=== PATIENT | female | born 1955 | race Caucasian/White ===

== ENCOUNTER 2018-01-29 09:31 | Inpatient (IN) | payer MEDICARE, OTHER, SELFPAY ==
[2018-01-29] VITALS (18 sets, daily range): BP systolic 106–175; BP diastolic 59–96; PULSE 56–82; RESP 12–18; TEMP 36.3–37.1; O2SAT 94–100; BMI 20.5
--- NOTE | 2018-01-29 | PATH_ITS ---
[facility] Accession Number: [id number] . 01 Material submitted: . RIGHT PORTION OF THE COLON . 02 Diagnosis: Portion of Right Colon, Partial Colectomy: Segment of colon with focal mucosal ischemic changes, consistent with clinical history of volvulus. Segment of small bowel with no diagnostic abnormality. Appendix with endoappendicitis; negative for neoplasm. Negative for dysplasia or malignancy. MRV/02/02/2018 . 02 Electronically signed: . Humberto Fofana MD, PhD, Pathologist NPI- [id number] . 01 Gross description: . Received in formalin, labeled with the patient's name and portion of the right colon is a 23 cm in length portion of colon which is stapled at both ends and has a diameter ranging from 4 to 6 cm. An 8 cm in length by 0.7 cm in diameter appendix is present. The serosa is smooth and without gross lesions. Opening the specimen reveals soft fecal material and partially digested food particles. The lumen appears dilated and the wall thickness ranges from 0.1 to 0.2 cm. The mucosa is naranjo-brown and partially folded. No masses or lesions are identified. The appendix is serially sectioned and no fecaliths are identified. Also received is a separate portion of what appears to be small bowel which was previously opened and measures 4.5 cm in length by 1.9 cm in diameter with multiple staple lines. The specimen is opened to reveal well folded, unremarkable mucosa. Pension Consultant sections are submitted as follows: A1 - proximal resection margin; A2 - distal resection margin; A3-A4 - novelties sales representative full-thickness mucosa; A5 - ileocecal valve; A6 - appendix tip and cross-sections; A7 - separate portion of mucosa. (LATASHA:[id number]) /MRV . 02 Pathologist provided ICD-10: K56.2 . 02 CPT . 346608 Performed at: 01 [facility] [address] [place] [address], [place], [place] [id number] MD Morales Cross MD Phone: [phone] Performed at: 02 [facility] [address] [place], [place] [id number] MD Steven Krueger MD Phone: [phone]
--- NOTE | 2018-01-29 10:02 | ED.ABDPAIN ---
HPI - Abdominal Pain General Chief Complaint: Abdominal Pain Stated Complaint: lower right abdominal pain Time Seen by Provider: 01/29/18 09:39 Source: patient Mode of arrival: ambulatory Limitations: no limitations History of Present Illness HPI narrative: This is a 62-year-old female comes in with complaint of right-sided abdominal pain particularly in the lower quadrant. Patient states she has had similar pain in the past when she had which she describes as a torsion of her bowel. This was treated with oral an enema contrast which resolved her issues at that time. Patient states that pain started over night. It sort of feels like a contraction and comes and goes. She has felt nauseated but no vomiting. She has been having bowel movement regularly and had 1 yesterday morning. She typically has 1 bowel movement each morning. She has had no urinary symptoms. Patient denies any other fevers. MD complaint: abdominal pain Onset (ago): hour(s) Pain Consistency: intermittent Location: RLQ Severity: moderate Quality: cramping ( Feels like contractions.) Migration to: no migration Context: history of similar episodes Related Data Home Medications Medication Instructions Recorded Confirmed cholecalciferol (vitamin D3) 4,000 mg OR Q DAY #0 11/04/16 01/29/18 [Vitamin D3] lisinopril 10 mg OR Q DAY #0 11/04/16 01/29/18 Allergies Allergy/AdvReac Type Severity Reaction Status Date / Time No Known Drug Allergies Allergy Verified 01/29/18 09:41 Review of Systems Review of Systems All systems reviewed & are unremarkable except as noted in HPI and below Constitutional Reports as per HPI, Denies anorexia, Denies body ache(s), Denies chills, Reports difficulty sleeping and Denies fever(s) Cardiovascular Denies chest pain, Denies irregular heart rhythm, Denies lightheadedness, Denies palpitations, Denies dyspnea, Denies dyspnea on exertion and Denies orthopnea Respiratory Denies cough, Denies dyspnea, Denies dyspnea on exertion and Denies wheezing Gastrointestinal Gastrointestinal: Reports abdominal pain, Denies constipation, Denies diarrhea, Reports nausea, Denies vomiting and Denies hematemesis Genitourinary Denies hematuria, Denies urinary frequency and Denies flank pain Musculoskeletal Comments: No back pain Endocrine Denies palpitations Allergic/Immunologic Denies wheezing [facility] Medical History Hypertension (Acute) Social History household members: spouse Smoking Status: Never smoker Exam Initial Vital Signs Initial Vital Signs: Vital Signs Temperature 98.8 F 01/29/18 09:38 Pulse Rate 70 01/29/18 09:38 Respiratory Rate 14 01/29/18 09:38 Blood Pressure 175/96 H 01/29/18 09:38 Pulse Oximetry 100 01/29/18 09:38 Chest Chest: normal inspection of the chest Resp Effort & Inspection: normal respiratory effort, able to speak in complete sentences, no respiratory distress and no use of accessory muscles Auscultation: clear to auscultation bilaterally, no rales, no rhonchi and no wheezes Cardio Rate: regular rate Rhythm: regular rhythm Heart Sounds: no click, no gallops, no murmurs and no rubs Pulses: normal peripheral pulses GI Inspection: normal to inspection, non-distended and no visible pulsation Palpation: soft, no hepatosplenomegaly, No firm, guarding, No hepatomegaly, No hernia, No mass, No pulsatile mass, No rigid and tender (rlq) Auscultation: normal bowel sounds Other: no bruit General: No CVA tenderness Course Orders Ordered: ED Orders 01/29/18 09:45 Complete Blood Count AUTO DIFF Stat Comprehensive Metabolic Panel Stat Lipase Stat Partial Thromboplastin Time Stat Prothrombin Time INR Stat 01/29/18 10:03 CT abdomen pelvis w con Stat 01/29/18 16:59 Consult to Discharge Planning Routine Education, smoking cessation ONGOING Diphenhydramine HCl (Benadryl) 25 mg IV Q6HR PRN PRN Reason: Itching Enoxaparin Sodium (Lovenox) 40 mg SUBCUT DAILY FERNANDA Hydromorphone HCl (Dilaudid) 0.5 mg IV Q1HR PRN PRN Reason: Pain, Moderate (4-6) Dextrose/Sodium Chloride (Dextrose 5%-0.45% Ns) 1,000 mls @ 100 mls/hr IV CONT FERNANDA Last Admin: 01/29/18 18:24 Dose: 100 mls/hr Ketorolac Tromethamine (Toradol) 15 mg IV Q6H PRN PRN Reason: Pain, Moderate (4-6) Stop: 02/03/18 16:21 Naloxone HCl (Narcan) 0.2 mg IV Q2MIN PRN PRN Reason: Opiate Reversal Ondansetron HCl (Zofran) 4 mg IV Q4HR PRN PRN Reason: Nausea And Vomiting Discontinued Medications Bupivacaine HCl (Sensorcaine 0.5% (Pf)) 30 ml INJ INTRA-OP ONE Stop: 01/29/18 15:53 Last Admin: 01/29/18 15:53 Dose: 20 ml Fentanyl (Sublimaze) 25 mcg IV Q5MIN PRN PRN Reason: Pain, Mild (1-3) Fentanyl (Sublimaze) 50 mcg IV Q5MIN PRN PRN Reason: Pain, Moderate (4-6) Hydromorphone HCl (Dilaudid) 0.5 mg IV Q5MIN PRN PRN Reason: Pain, Severe (7-10) Hydroxyzine HCl (Vistaril) 25 mg IM NOW PRN PRN Reason: Pain, Mild (1-3) Sodium Chloride (Normal Saline 0.9%) 1,000 mls @ 150 mls/hr IV CONT ON LICENSE OF [facility] Last Infusion: 01/29/18 15:12 Dose: 0 mls/hr Infusion: 01/29/18 14:55 Dose: 0 mls/hr Admin: 01/29/18 10:05 Dose: 150 mls/hr Lactated Ringer's (Lactated Ringers) 1,000 mls @ 42 mls/hr IV CONT ON LICENSE OF [facility] Last Infusion: 01/29/18 16:46 Dose: 0 mls/hr Admin: 01/29/18 14:55 Dose: 42 mls/hr Cefotetan Disodium/Dextrose (Cefotan) 2 gm in 50 mls @ 100 mls/hr IV NOW ONE Stop: 01/29/18 16:24 Last Infusion: 01/29/18 15:10 Dose: 0 mls/hr Admin: 01/29/18 15:06 Dose: 100 mls/hr Ketorolac Tromethamine (Toradol) 30 mg IV NOW ONE Stop: 01/29/18 10:03 Last Admin: 01/29/18 10:05 Dose: 30 mg Lidocaine/Epinephrine (Xylocaine 1% W/Epi) 20 ml INJ INTRA-OP ONE Stop: 01/29/18 15:53 Last Admin: 01/29/18 15:54 Dose: 20 ml Meperidine HCl (Demerol) 25 mg IV Q5MIN PRN PRN Reason: Pain or shivering Metoclopramide HCl (Reglan) 10 mg IV NOW PRN PRN Reason: Nausea And Vomiting Morphine Sulfate (Morphine) 4 mg IV NOW ONE Stop: 01/29/18 10:58 Last Admin: 01/29/18 11:05 Dose: 4 mg Ondansetron HCl (Zofran) 4 mg IV NOW ONE Stop: 01/29/18 10:03 Last Admin: 01/29/18 10:05 Dose: 4 mg Ondansetron HCl (Zofran) 4 mg IV NOW PRN PRN Reason: Nausea And Vomiting Reevaluation(s) Reevaluation #1: pain improved. Time: 12:03 Consultations Consultation #1: Dr. Gerardo accepts of for admission. Will see patient in department. Plan for OR today for cecal vovulus. Time: 12:02 Vital Signs - 8 hr 01/29/18 11:04 01/29/18 12:30 01/29/18 13:00 Temperature Pulse Rate 60 58 L Respiratory Rate 14 12 Blood Pressure Blood Pressure [Left Arm] 160/92 H 119/63 130/65 Pulse Oximetry 100 95 96 01/29/18 13:43 01/29/18 14:00 01/29/18 14:40 Temperature 98.2 F Pulse Rate 56 L 60 Respiratory Rate 14 16 Blood Pressure 153/86 H Blood Pressure [Left Arm] 149/80 H 141/77 H Pulse Oximetry 100 97 99 01/29/18 14:45 01/29/18 16:18 01/29/18 16:23 Temperature 97.4 F L Pulse Rate 60 82 75 Respiratory Rate 16 15 15 Blood Pressure 149/76 H 106/68 119/59 L Blood Pressure [Left Arm] Pulse Oximetry 99 98 97 01/29/18 16:28 01/29/18 16:33 01/29/18 16:43 Temperature 97.8 F 97.4 F L Pulse Rate 70 68 66 Respiratory Rate 14 15 16 Blood Pressure 122/65 119/62 128/63 Blood Pressure [Left Arm] Pulse Oximetry 97 97 97 01/29/18 16:50 01/29/18 17:20 01/29/18 17:50 Temperature 97.5 F L 97.7 F 97.8 F Pulse Rate 67 69 69 Respiratory Rate 16 16 18 Blood Pressure 135/72 125/76 120/69 Blood Pressure [Left Arm] Pulse Oximetry 97 94 97 MDM - Abdominal Pain Differential Diagnosis Differential diagnosis: Likely abdominal pain, acute appendicitis, calculus of kidney, diverticulitis and small bowel obstruction Lab Data Attestation: I reviewed the patient's lab results. Result diagrams: 01/29/18 09:45 01/29/18 09:45 Lab Results 01/29/18 01/29/18 01/29/18 Range/Units 09:45 09:45 09:45 WBC 8.5 (4.5-11.0) X10^3/uL RBC 4.88 (4.0-5.2) X10^6/uL Hgb 14.5 (12.0-16.0) g/dL Hct 43.0 (36-46) % MCV 88.2 (80-100) fL MCH 29.8 (26-34) PG MCHC 33.8 (30-36) % RDW 13.7 (11.6-14.8) % Plt Count 280 (150-400) X10^3/uL Neut % (Auto) 66.5 (50-75) % Lymph % (Auto) 22.5 L (25-40) % [place] % (Auto) 8.6 (3-14) % Eos % (Auto) 1.5 L (2-4) % Baso % (Auto) 0.9 (0-2) % Neut # (Auto) 5600 (1510-6519) /uL PT 10.3 (10.1-12.7) SECONDS INR 1.0 (0.9-1.3) APTT 32 (26.4-36.2) SECONDS Sodium 143 (137-145) mmol/L Potassium 4.7 (3.4-5.1) mmol/L Chloride 107 (98-107) mmol/L Carbon Dioxide 26 (22-32) mmol/L BUN 15 (7-17) mg/dL Creatinine 0.80 (0.52-1.04) mg/dL Estimated GFR > 60.0 (>60) mL/min BUN/Creatinine Ratio 18.8 (6-22) Glucose 98 (80-110) mg/dL Calcium 10.7 H (8.4-10.2) mg/dL Total Bilirubin 0.7 (0.2-1.3) mg/dL AST 27 (14-36) IU/L ALT 23 (9-52) IU/L Alkaline Phosphatase 70 (38-126) U/L Total Protein 8.1 (6.3-8.2) g/dL Albumin 4.9 (3.5-5.0) g/dL Globulin 3.2 (1.7-4.1) g/dL Albumin/Globulin Ratio 1.5 (1.0-2.8) Lipase 147 (23-300) U/L Point of care testing: Urine Dip Bedside Urine Glucose Negative Bedside Urine Bilirubin - Negative Bedside Urine Ketone - Negative Urine Specific [place] 1.010 Bedside Urine Occult Blood - Negative Bedside Urine pH 7.0 Bedside Urine Protein - Negative Bedside Urine Urobilinogen - Negative Bedside Urine Nitrite - Negative Bedside Urine Leukocytes - Negative Esterase Imaging Data CT scan - abdomen: Radiologist's impression: Patient: Parvin Medellin MMR#: [id number] : 3Acct:[id number] Age/Sex: 62 / FDate of Service: 01/29/18 Loc: ED Accession Number: [id number] Procedure: CT abdomen pelvis w con Ordering Provider: Celina Carlos D.O. PROCEDURE: CT ABDOMEN PELVIS W CON INDICATIONS: Right sided abdomen pain, history of torsion of bowel on right before. TECHNIQUE: After the administration of oral and intravenous contrast, 5 mm thick sections acquired from the diaphragms to the symphysis. 5 mm thick coronal and sagittal reformats were performed. For radiation dose reduction, the following was used: automated exposure control, adjustment of mA and/or kV according to patient size. COMPARISON: None. FINDINGS: Image quality: Excellent. ABDOMEN: Lung bases: Lung bases are clear. Heart size is normal. Solid organs: Liver is normal in size and enhancement. Gallbladder is within normal limits. Biliary system is non-dilated. Pancreas enhances normally. Spleen is normal in size and enhancement. No adrenal nodules. Kidneys are normal in size and enhancement, without hydronephrosis. Peritoneum and bowel: The right colon is rotated toward the midline with ileocecal valve on the lateral margin. Findings compatible cecal volvulus. There is a large amount of stool in the right colon. Moderate amount of stool seen in the transverse, left and sigmoid colon. Stomach and small bowel are normal in caliber and wall thickness. No free air. Trace free fluid noted adjacent to the cecal volvulus. The appendix is normal Nodes and vessels: No retroperitoneal or mesenteric adenopathy. Aorta and inferior vena cava are normal in caliber. Scattered atherosclerotic calcifications are noted in the abdominal and pelvic vasculature. Miscellaneous: No ventral hernias. PELVIS: Genitourinary: Bladder wall thickness is normal. Miscellaneous: No inguinal hernias or adenopathy. Bones: No suspicious bony lesions. No vertebral body compression fractures. Spine degenerative disease and facet arthropathy noted. IMPRESSION: 1. Findings compatible cecal volvulus. 2. Large amount of stool in the right colon likely reflective of obstruction related to cecal volvulus. 3. Findings telephoned to Dr. Celina Carlos on 01/29/18 at 1149 hrs. Dictated by: Bobbi Mae MD, PhD on 01/29/2018 at 11:44 Approved by: Bobbi Mae MD, PhD on 01/29/2018 at 11:51 MDM Narrative Medical decision making narrative: patient had similar symptoms in the past. Plan for oral and IV contrast with CT of abdomen is patient does still have her appendix but could also be her similar issues from the past. Lab work does not show any major abnormalities nor does poc urinalysis. Patient's pain was not resolved with Toradol, she also received Zofran. Additional pain medication was ordered. Discharge Plan Departure Patient Disposition: Admitted As Inpatient Clinical Impression: Cecal volvulus Discharge Date/Time: 01/29/18 14:20 Interventions: ED Discharge Assessment Last Done: 01/29/18 14:20 Admit Date/Time: 01/29/18 12:17 Admit Provider: Aida Gerardo ED Cosign/Signout Cosign ED Attending Cosignature Attestation:
[2018-01-29 10:05] LABS: Add Manual Diff / Slide Review NO; Basophils Percent Auto 0.9 % (0-2); Eosinophils Percent Auto 1.5 % (2-4); Hemoglobin 14.5 g/dL (12.0-16.0); Lymphocytes Percent Auto 22.5 % (25-40); Mean Corpuscular HGB Conc 33.8 % (30-36); Mean Corpuscular Hemoglobin 29.8 PG (26-34); Mean Corpuscular Volume 88.2 fL (80-100); Monocytes Percent Auto 8.6 % (3-14); Neutrophils Absolute Auto 5600 /uL (3000-5900); Neutrophils Percent Auto 66.5 % (50-75); Platelet Count 280 X10^3/uL (150-400); Red Blood Cell Count 4.88 X10^6/uL (4.0-5.2); Red Cell Distribution Width 13.7 % (11.6-14.8); White Blood Cell Count 8.5 X10^3/uL (4.5-11.0)
[2018-01-29] MEDS: KETOROLAC 60 MG/2 ML VIAL 30 MG IV (10:05)
[2018-01-29] MEDS: SODIUM CHLORIDE 0.9% 1,000 ML 150 ML IV (10:05)
[2018-01-29] MEDS: ONDANSETRON 4 MG/2 ML INJ IV (10:05)
[2018-01-29 10:11] LABS: Prothrombin Time 10.3 SECONDS (10.1-12.7)
[2018-01-29 10:14] LABS: PTT Partial Thromboplastin Tim 32 SECONDS (26.4-36.2)
[2018-01-29 10:15] LABS: Alanine Aminotransferase 23 IU/L (9-52); Albumin 4.9 g/dL (3.5-5.0); Albumin Globulin Ratio 1.5 (1.0-2.8); Alkaline Phosphatase 70 U/L (38-126); Aspartate Aminotransferase 27 IU/L (14-36); BUN Creatinine Ratio 18.8 (6-22); Bilirubin Total 0.7 mg/dL (0.2-1.3); Blood Urea Nitrogen 15 mg/dL (7-17); Calcium 10.7 mg/dL (8.4-10.2); Carbon Dioxide 26 mmol/L (22-32); Chloride 107 mmol/L (98-107); Estimated Glomerular Filt Rate > 60.0 mL/min (>60); Globulin 3.2 g/dL (1.7-4.1); Glucose 98 mg/dL (80-110); HEMOLYSIS 41 (0-50); Lipase 147 U/L (23-300); Potassium 4.7 mmol/L (3.4-5.1); Sodium 143 mmol/L (137-145); Total Protein 8.1 g/dL (6.3-8.2)
[2018-01-29] MEDS: MORPHINE 4 MG/ML INJ IV (11:05)
--- NOTE | 2018-01-29 13:46 | PC.NURSE ---
Pt took off her belongings and gave to to take home. Per pt, she has not eaten any food since last night and has not had any PO fluids since she took her PO contrast at 1000.
--- NOTE | 2018-01-29 14:49 | PM.HP.1 ---
History of Present Illness Date Patient Seen: 01/29/18 Time Patient Seen: 14:50 Chief complaint: lower right abdominal pain Narrative: Parvin is a very pleasant 62-year-old lady who is known to my practice from prior visits. She reported to the emergency room this morning complaining of acute onset of right-sided abdominal pain. This is the 3rd such episode of abdominal pain she has dealt with in the past 6 years. She denies any nausea or vomiting. She reports that as soon as the pain recurred she came right to the emergency room because she recognized. She reports that she has continued to live a healthy lifestyle since she was last seen. She works out at least 6 days a week and denies any shortness of breath or decreased exercise tolerance. Her last bowel movement was yesterday and was essentially normal. Her last colonoscopy was in May of 2016 and was normal with the exception of a very redundant colon. In the emergency room, she was seen and evaluated including a CT scan of the abdomen and pelvis. The CT revealed a recurrent cecal volvulus/bascule with essentially complete obstruction. In review of her CT, it is very similar to the study seen in October of 2016. Her previous episodes have been treated with Gastrografin enema which does seem to de torse the right-sided segment. Patient History Medical History Hypertension (Acute) Family & Social History Family History: Reviewed 01/29/18 by Aida Gerardo MD Safety & Behavioral: Feels Safe in Current Yes Environment Been Physically Hurt or No Threatened By a Person Tobacco & Substance use: Smoking Status Never smoker alcohol intake frequency 0-2 drinks per day Substance Use Type does not use Meds Home Medications Medication Instructions Recorded Confirmed Type cholecalciferol (vitamin D3) 4,000 mg OR Q DAY #0 11/04/16 01/29/18 History [Vitamin D3] lisinopril 10 mg OR Q DAY #0 11/04/16 01/29/18 History Allergies Allergy/AdvReac Type Severity Reaction Status Date / Time No Known Drug Allergies Allergy Verified 01/29/18 09:41 Review of Systems Review of Systems All systems reviewed & are unremarkable except as noted in HPI and below Exam Vital Signs (past 8 hours): - 01/29/18 09:38 01/29/18 11:04 01/29/18 12:30 Temperature 98.8 F Pulse Rate 70 60 58 L Respiratory Rate 14 14 12 Blood Pressure 175/96 H Blood Pressure [Left Arm] 160/92 H 119/63 Pulse Oximetry 100 100 95 01/29/18 13:00 01/29/18 13:43 01/29/18 14:00 Temperature Pulse Rate 56 L Respiratory Rate 14 Blood Pressure Blood Pressure [Left Arm] 130/65 149/80 H 141/77 H Pulse Oximetry 96 100 97 01/29/18 14:40 01/29/18 14:45 Temperature 98.2 F Pulse Rate 60 60 Respiratory Rate 16 16 Blood Pressure 153/86 H 149/76 H Blood Pressure [Left Arm] Pulse Oximetry 99 99 Oxygen Delivery Method Room Air Narrative Exam Narrative: Very pleasant and healthy-appearing lady in very mild distress HEENT: Normocephalic and atraumatic, pupils equal round reactive to light accommodation with anicteric sclera Lungs: Clear to auscultation bilaterally Heart: Regular rate and rhythm without murmur rub or gallop Abdomen: Soft, tender to palpation in the right upper and lower quadrants. Hypoactive bowel sounds. No rebound or guarding. No heel tap or Rovsing sign. Definitely no peritoneal signs he had. No abdominal hernias or masses appreciated. Extremities: Warm and well-perfused and without edema. Objective Labs Result Diagrams: 01/29/18 09:45 01/29/18 09:45 Labs: Laboratory Results - last 24 hr 01/29/18 01/29/18 01/29/18 09:45 09:45 09:45 WBC 8.5 RBC 4.88 Hgb 14.5 Hct 43.0 MCV 88.2 MCH 29.8 MCHC 33.8 RDW 13.7 Plt Count 280 Neut % (Auto) 66.5 Lymph % (Auto) 22.5 L [place] % (Auto) 8.6 Eos % (Auto) 1.5 L Baso % (Auto) 0.9 Neut # (Auto) 5600 PT 10.3 INR 1.0 APTT 32 Sodium 143 Potassium 4.7 Chloride 107 Carbon Dioxide 26 BUN 15 Creatinine 0.80 Estimated GFR > 60.0 BUN/Creatinine Ratio 18.8 Glucose 98 Calcium 10.7 H Total Bilirubin 0.7 AST 27 ALT 23 Alkaline Phosphatase 70 Total Protein 8.1 Albumin 4.9 Globulin 3.2 Albumin/Globulin Ratio 1.5 Lipase 147 Assessment & Plan Plan: Assessment/Plan Narrative: [address] [address] [address] Scan Report Signed Patient: Parvin Medellin MR#: [id number] : 1955 Acct:[id number] Age/Sex: 62 / F Date of Service: 01/29/18 Loc: ED Accession Number: [id number] Procedure: CT abdomen pelvis w con Ordering Provider: Celina Carlos D.O. PROCEDURE: CT ABDOMEN PELVIS W CON INDICATIONS: Right sided abdomen pain, history of torsion of bowel on right before. TECHNIQUE: After the administration of oral and intravenous contrast, 5 mm thick sections acquired from the diaphragms to the symphysis. 5 mm thick coronal and sagittal reformats were performed. For radiation dose reduction, the following was used: automated exposure control, adjustment of mA and/or kV according to patient size. COMPARISON: None. FINDINGS: Image quality: Excellent. ABDOMEN: Lung bases: Lung bases are clear. Heart size is normal. Solid organs: Liver is normal in size and enhancement. Gallbladder is within normal limits. Biliary system is non-dilated. Pancreas enhances normally. Spleen is normal in size and enhancement. No adrenal nodules. Kidneys are normal in size and enhancement, without hydronephrosis. Peritoneum and bowel: The right colon is rotated toward the midline with ileocecal valve on the lateral margin. Findings compatible cecal volvulus. There is a large amount of stool in the right colon. Moderate amount of stool seen in the transverse, left and sigmoid colon. Stomach and small bowel are normal in caliber and wall thickness. No free air. Trace free fluid noted adjacent to the cecal volvulus. The appendix is normal Nodes and vessels: No retroperitoneal or mesenteric adenopathy. Aorta and inferior vena cava are normal in caliber. Scattered atherosclerotic calcifications are noted in the abdominal and pelvic vasculature. Miscellaneous: No ventral hernias. PELVIS: Genitourinary: Bladder wall thickness is normal. Miscellaneous: No inguinal hernias or adenopathy. Bones: No suspicious bony lesions. No vertebral body compression fractures. Spine degenerative disease and facet arthropathy noted. IMPRESSION: 1. Findings compatible cecal volvulus. 2. Large amount of stool in the right colon likely reflective of obstruction related to cecal volvulus. 3. Findings telephoned to Dr. Celina Carlos on 01/29/18 at 1149 hrs. Dictated by: Bobbi Mae MD, PhD on 01/29/2018 at 11:44 Approved by: Bobbi Mae MD, PhD on 01/29/2018 at 11:51 Recurrent cecal volvulus in the setting of a very healthy 62-year-old lady. I spent some time with a net and her significant other this morning discussing standard of care measures for recurrent volvulus. The less invasive route has certainly been fully investigated in her case. I have recommended a right hemicolectomy with primary anastomosis. This should prevent recurrence and in my opinion, is the best option. We have carefully discussed the risks and benefits of the procedure and the patient has expressed a desire to complete it.
[2018-01-29] MEDS: LACTATED RINGERS 1,000 ML 42 ML IV (14:55)
[2018-01-29] MEDS: CEFOTETAN 2 GM/50 ML PIGGYBACK IV (15:06)
--- NOTE | 2018-01-29 15:42 | SUR.OPER ---
Supine on padded OR bed, head on pillow, arms secured on padded arm boards at <90 degrees abduction, legs uncrossed, safety belt at thigh, tape over blanket over lower legs.
[2018-01-29] MEDS: BUPIVACAINE 0.5% (PF) VIAL 30 ML INJ (15:53)
[2018-01-29] MEDS: LIDOCAINE 1% W/EPI INJ 20 ML INJ (15:54)
--- NOTE | 2018-01-29 16:16 | P.OP_ITS ---
Operative Date/Time/Diagnoses Date of procedure: 01/29/18 Time of procedure: 16:06 Pre-op diagnosis: Cecal volvulus Post-op diagnosis: same Procedure & Clinicians Procedure: Laparotomy with right colectomy and primary ileocolostomy Same procedure as scheduled: Yes Indications: Recurrent cecal volvulus Surgeon: Aida Gerardo Click Yes if Unassisted: Yes Anesthesia Type: General (Kotlarczyk) Operative Notes Findings: 1. Distended and floppy and dusky appearing cecum completely detached from the lateral abdominal wall. Complete 360 degree volvulus at the mid ascending colon. 2. Long, narrow, but normal-appearing appendix 3. Normal small bowel without distension Closure Type: primary Specimen(s): other (Portion of right colon) Implants & Drains: None Applied: catheter Estimated Blood Loss (mL): 25 Procedure in detail: After obtaining informed consent, the patient is brought to the operating room and placed in the supine position on the operating table. Following successful induction of general endotracheal anesthesia, appropriate padding of all bony prominences and placement of appropriate monitors, the abdomen was prepped and draped in the standard surgical fashion. A time-out was held per SCOAP protocol. Following infiltration with local anesthetic to create a field block, an incision was created inferior to the umbilicus and carried down through the skin and subcutaneous tissue to reveal the fascia below the fascia was opened sharply and the abdomen entered under direct vision. The surgeon's hand was placed in the abdominal cavity and the cecum was palpated deep in the right lower quadrant. It was elevated easily and delivered itself into the wound. A complete 360 degree torsion was visualized at the mid ascending colon. Proximal to this site, the cecum was impressively distended, dusky, and filled with liquid stool. Distal to this area, the colon was of normal caliber and without evidence of ischemia. The torsion was undertaken and we were able to appreciate an improvement in the appearance of a cecal tissue. The mesentery itself was notably edematous and bruised at the base of the torsion. The Harmonic scalpel was employed to divide the mesoappendix and to create a window in the mesentery of the most distal ileum. A 60 mm JASMIN stapling device was placed through this window and the ileum was divided as nearly as possible to the ileocecal valve. The Harmonic scalp was then employed to divide the mesentery of the cecum to the level of the reduced torsion. A JASMIN stapling device was now employed to divide the right colon just distal to the site of the torsion. This was the site where the colon appeared normal once again. This was done without spillage of any intestinal contents. The specimen was now passed from the table. We turned our attention to establishing continuity of the GI tract. A stapled [id number] anastomosis was created between the distal ileum and the distal right colon. Bowel clamps were placed before the bowel was opened and the entire area wrapped with Betadine-soaked towels. There was no visible or appreciable spillage during creation of the anastomosis. The edges in corners of the anastomosis were oversewn with interrupted silk suture. The bowel clamps were removed and the anastomosis was checked both for patency and for leaking. The opening was big enough to allow the surgeon's thumb and there was no evidence of leaking. The mesenteric defect that remained was addressed with an interrupted silk suture. The bowel was now eased back into the abdominal cavity and the abdomen was irrigated with 1 L of normal saline solution. It was aspirated free of all fluid and particulate matter and checked once again for hemostasis. When we were satisfied that all was clean and dry, the abdominal incision was closed with a looped Maxon suture. The subcutaneous tissue was irrigated with Betadine containing saline and then closed with a subcuticular stitch. All sponge, needle , and instrument counts were correct at the conclusion of the case. The patient was allowed to wake from anesthesia without difficulty and taken to the post anesthesia care unit in good condition. Complications: none Condition: stable Disposition: PACU Plan for aftercare: 1. Admit to acute care for continued convalescence and support 2. Continue antibiotics for 24 hr.
[2018-01-29] MEDS: KETOROLAC 15 MG/ML VIAL IV (17:10)
[2018-01-29] MEDS: DEXTROSE 5%-0.45% NS 1,000 ML 100 ML IV (18:24)
[2018-01-29] MEDS: HYDROMORPHONE 1 MG INJ 0.5 MG IV ×2 (19:11→21:19)
[2018-01-30 00:50] VITALS: BP 109/67; PULSE 77; RESP 18; TEMP 36.7; O2SAT 96
[2018-01-30 03:10] VITALS: BP 114/69; PULSE 74; RESP 16; TEMP 36.5; O2SAT 97
[2018-01-30] MEDS: DEXTROSE 5%-0.45% NS 1,000 ML 100 ML IV ×3 (03:25→22:45)
[2018-01-30] MEDS: HYDROMORPHONE 1 MG INJ 0.5 MG IV ×5 (03:41→23:59)
[2018-01-30 07:35] VITALS: BP 129/72; PULSE 65; RESP 16; TEMP 36.4; O2SAT 97
[2018-01-30] MEDS: KETOROLAC 15 MG/ML VIAL IV ×2 (08:11→14:44)
--- NOTE | 2018-01-30 09:40 | PC.NURSE ---
Patient up in chair this morning, pleasant and cooperative. Ice to abdominal incision. Given IV dilaudid and IV toradol per orders for pain control this morning with good effect. IV fluids infusing. Brief period of nausea noted after dilaudid was administered but resolved spontaneously and patient declines anti emetics. Bowel sounds present, states she did pass a little flatus overnight. Ambulation with assistance encouraged this morning, call light within reach.
--- NOTE | 2018-01-30 10:08 | CM.DANOTE ---
Discharge Planning/Care Management DCP: assessment: case received, EMR reviewed, conferred with BEVERLEY Wood and met with pt. Introduced self and role. Pt is a 62 year old female who admitted to care of Dr. Gerardo yesterday. She was taken to surgery for laparotomy with R Colectomy: cecal Volvulus Payer: Medicare and [facility]. Pt says she expects to be here a few days, is just starting Jello this morning. 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 Lives with her in [place]. P: anticipate home when has GI function back. DCP team will follow prn to assist with needs as they arise. CM Discharge Assessment Start: 01/30/18 09:28 Freq: Status: Active Protocol: Document 01/30/18 10:07 ITV (Rec: 01/30/18 10:08 ITV [id number]) Discharge Planning Assessment History Provided By Patient Medical Record Prior Living Arrangements House Household Members spouse Independent with ADL's Yes Is patient alert and oriented? Yes Whiteboard Updated in Patient Room with Yes name and ext. # of Coordinator Of Genetic Services Review Status In Process Next Review Type Continued Stay Review
[2018-01-30] MEDS: CEFOTETAN 2 GM/50 ML PIGGYBACK IV (10:39)
[2018-01-30] MEDS: ENOXAPARIN 40 MG/0.4 ML SYRINGE SUBCUT (10:40)
[2018-01-30 11:47] VITALS: BP 132/79; PULSE 62; RESP 18; TEMP 36.4; O2SAT 100
[2018-01-30 15:33] VITALS: BP 172/87; PULSE 70; RESP 18; TEMP 36.7; O2SAT 100
--- NOTE | 2018-01-30 16:52 | PM.PNPO.1 ---
Subjective Date Patient Seen: 01/30/18 Time Patient Seen: 16:53 Interval history: Patient feels okay. A little sore. Passing a small amount of flatus. No bowel movements. Breathing okay. Has been walking. She has been getting a clear liquid diet. Exam Vital Signs (past 8 hours): - 01/30/18 11:47 01/30/18 15:33 Temperature 97.5 F L 98.0 F Pulse Rate 62 70 Respiratory Rate 18 18 Blood Pressure 132/79 172/87 H Pulse Oximetry 100 100 Oxygen Delivery Method Room Air Narrative Exam Narrative: Operative no apparent distress. Her lungs are clear to auscultation. No rales or rhonchi. Heart regular rate and rhythm without murmur gallop. Abdomen is fairly flat and soft. Midline scar noted no cellulitis. There is some inferior bruising. Objective Labs Result Diagrams: 01/29/18 09:45 01/29/18 09:45 Assessment & Plan Post-op Postoperative Procedures Operation Date: 01/29/18 14:10 Actual Procedures Side Surgeon p exploratory laparotomy Right Aida Gerardo MD Postoperative day: 3 Postoperative status narrative: Patient is doing quite well. I think all advance her to a full liquid diet in the morning. A.m. give her a suppository to see if we can stimulate bowel function. Continue ambulation and deep breathing. Continue IV fluids. Patient was given 1 additional dose of cefotetan as per Dr. Gerardo Postoperative plan: routine post-op care Time Spent With Patient less than 15 minutes Quality VTE Deep Vein Thrombosis/Pulmonary Embolism Present on Admission: No
[2018-01-30 19:33] VITALS: BP 143/87; PULSE 67; RESP 20; TEMP 36.8; O2SAT 98
--- NOTE | 2018-01-30 22:49 | PC.NURSE ---
Addendum entered by Noemi Restrepo R.N. 01/30/18 22:53: new order for bisacodyl supp in AM. Original Note: Pt C/O 12/06 pain to ABD, medicated with dilaudid 0.5mg IVP. Denies nausea, diet advanced to fulls. Midline incision well approximated with dermabond CDI. Indep to BRP to void, and ambulated in hallways this shift. Uses call light appropriately.
[2018-01-31] VITALS (7 sets, daily range): BP systolic 137–176; BP diastolic 79–97; PULSE 67–80; RESP 14–20; TEMP 36.4–37.1; O2SAT 96–100
--- NOTE | 2018-01-31 00:14 | PC.NURSE ---
Addendum entered by Zhane Moses R.N. 01/31/18 06:36: Was medicated with Dilaudid at 0342 and again at 0544 for 4-6/10 abdominal pain. Up to bathroom frequently with UOP of 2500cc this shift. Original Note: Patient is alert and oriented. Breath sounds CTA with RA sat of 99%. HRR. Denies nausea. BT present and passing flatus. Abdomen is puffy and tender but soft. Denies dysuria, frequency, urgency or incontinence. Independent with bed mobility. Midline abdominal incision is well approximated with dermabond; bruising around incision noted. Abdomen is soft, tender and puffy. Complains of 6/10 abdominal pain so medicated with Dilaudid and is using ice pack to area. Refusing SCD's so reminded to ankle wave when awake.
[2018-01-31] MEDS: HYDROMORPHONE 1 MG INJ 0.5 MG IV ×7 (03:42→22:21)
[2018-01-31] MEDS: BISACODYL 10 MG SUPP PR (06:47)
[2018-01-31] MEDS: ENOXAPARIN 40 MG/0.4 ML SYRINGE SUBCUT (08:02)
[2018-01-31] MEDS: DEXTROSE 5%-0.45% NS 1,000 ML 100 ML IV ×2 (08:20→18:13)
--- NOTE | 2018-01-31 16:06 | PC.NURSE ---
Day Shift- Pt OOB several times to void in BR, SBA ambulation, ambulated in halls X1 at 1030. Voiding qs. Around 1140, pt had several abd cramping, with sharpness, sitting on toilet, flatus passed, had small loose BM with few small soft pieces. After Dilaudid IV prn given at 1145, pain decreased from 10/10 to 3-4/10 once back to bed. Pt did have one episode of moderate nausea with small amount of emesis, unseen by sql report writer. Nausea settles once pain decreased. IVF infusing throughout shift per order. A total of IV Dilaudid given 3X at 0820/1145/1419. Spoke with Dr. Gerardo at 1320 requesting po pain meds per pt request. Pt states she would like to try po pain meds as Dilaudid doesn't last for very long. Plan after conversation with Dr. Gerardo was for prn Oxycodone and possibly prn Simethicone. Aware that pt stated prn Toradol was not helpful with pain management. Plan for restarting pt's home med of Lisinopril tomorrow. Pt has little amount of liquids today. Only water, tea, broth. Offered crackers, pudding, jello, applesauce, yogurt, cream of wheat and pt stated I don't feel hungry.
[2018-01-31] MEDS: ONDANSETRON 4 MG/2 ML INJ IV (16:15)
[2018-01-31] MEDS: KETOROLAC 15 MG/ML VIAL IV (18:13)
--- NOTE | 2018-01-31 19:24 | PC.NURSE ---
Addendum entered by Olga Kemp R.N. 01/31/18 22:49: pt walked around [facility] an additional 2x this evening. pt reports current pain management medications effective, does not feel she is ready for PO pain meds at this time. Original Note: SHIFT NOTE A&Ox3, pleasant and cooperative with care. bowel sounds present, pt reports positive flatus. midline abdominal incision CDI with bruising noted to periwound area. c/o 8/10 pain, medicated with PRN dilaudid and zofran. Pt able to tolerate some clear liquids for dinner. pt agreeable to walk in hallways with shift, so far has walked around [facility] twice. per previous shift RN, Dr. Gerardo was possibly going to put in orders for PRN PO oxycodone and simethecone, still awaiting order processing specialist. call light within reach.
[2018-02-01] VITALS (7 sets, daily range): BP systolic 120–146; BP diastolic 78–98; PULSE 69–82; RESP 15–72; TEMP 35.6–37.4; O2SAT 96–98
[2018-02-01] MEDS: KETOROLAC 15 MG/ML VIAL IV ×4 (02:47→22:43)
[2018-02-01] MEDS: DEXTROSE 5%-0.45% NS 1,000 ML 100 ML IV ×2 (02:48→16:25)
--- NOTE | 2018-02-01 05:07 | PC.NURSE ---
Addendum entered by Lu Koenig R.N. 02/01/18 05:57: 0530 Pt awake and reports pain at 2/10. States that she has been sleeping. Original Note: [id number] Pt awakened for assessment. Pt states that pain is much better controlled tonight. Rates pain 2/10 at rest and 4/10 when OOB moving. Pt medicated with Toradol for pain per JUL. Assessment completed.
--- NOTE | 2018-02-01 08:22 | PM.PN.1 ---
Subjective Date Patient Seen: 01/31/18 Time Patient Seen: 12:22 Interval history: Parvin reports she was doing really well until she got up to have a bowel movement and had excruciating pain. She had a large liquid stool and a lot of flatus and also had a little bit of emesis. The pain is improved but she is a bit shaken from the whole experience. Exam Vital Signs (past 8 hours): - 02/01/18 02:35 02/01/18 05:40 02/01/18 08:03 Temperature 98.9 F 97.3 F L 99.3 F Pulse Rate 82 70 78 Respiratory Rate 20 16 15 Blood Pressure 140/98 H 120/85 123/78 Pulse Oximetry 98 98 96 Oxygen Delivery Method Room Air Oxygen Flow Rate 0 Narrative Exam Narrative: Lungs: Clear bilaterally Abdomen: Soft, active bowel sounds, incision is clean and dry but with significant bruising along the inferior and middle aspects of the incision Extremities: No edema Objective Labs Result Diagrams: 01/29/18 09:45 01/29/18 09:45 Assessment & Plan Plan: Assessment/Plan Narrative: Will try adding oral pain meds to keep her pain under better control throughout the day. She will keep Dilaudid for breakthrough. Ambulating the halls. Check labs in the a.m.. Quality VTE Deep Vein Thrombosis/Pulmonary Embolism Present on Admission: No
[2018-02-01] MEDS: ENOXAPARIN 40 MG/0.4 ML SYRINGE SUBCUT (08:42)
[2018-02-01 09:45] LABS: Alanine Aminotransferase 31 IU/L (9-52); Albumin 3.6 g/dL (3.5-5.0); Albumin Globulin Ratio 1.3 (1.0-2.8); Alkaline Phosphatase 51 U/L (38-126); Aspartate Aminotransferase 34 IU/L (14-36); BUN Creatinine Ratio 7.5 (6-22); Bilirubin Total 0.9 mg/dL (0.2-1.3); Blood Urea Nitrogen 6 mg/dL (7-17); Calcium 10.2 mg/dL (8.4-10.2); Carbon Dioxide 34 mmol/L (22-32); Chloride 102 mmol/L (98-107); Estimated Glomerular Filt Rate > 60.0 mL/min (>60); Globulin 2.7 g/dL (1.7-4.1); Glucose 99 mg/dL (80-110); HEMOLYSIS < 15 (0-50); Sodium 143 mmol/L (137-145); Total Protein 6.3 g/dL (6.3-8.2)
[2018-02-01 10:36] LABS: Add Manual Diff / Slide Review NO; Basophils Percent Auto 0.5 % (0-2); Eosinophils Percent Auto 2.4 % (2-4); Hematocrit 35.3 % (36-46); Lymphocytes Percent Auto 13.7 % (25-40); Mean Corpuscular HGB Conc 33.9 % (30-36); Mean Corpuscular Volume 88.6 fL (80-100); Monocytes Percent Auto 10.6 % (3-14); Neutrophils Absolute Auto 6700 /uL (3000-5900); Neutrophils Percent Auto 72.8 % (50-75); Platelet Count 231 X10^3/uL (150-400); Red Blood Cell Count 3.98 X10^6/uL (4.0-5.2); Red Cell Distribution Width 13.5 % (11.6-14.8); White Blood Cell Count 9.1 X10^3/uL (4.5-11.0)
--- NOTE | 2018-02-01 12:22 | PC.NURSE ---
Addendum entered by Cornelia Main R.N. 02/01/18 14:22: Pt had a large emesis earlier and given zofran. She is not hungry but has managaed to keep down some sips this am. UP to bathroom twice and back to bed. She is visiting with her at this time and denies further nausea. Original Note: Pt is A&ox3, states that she is having some r.sided pain that is cook. States that feels like some gas. Given toradol to patient and helpful. Abdomen is slightly distended and bt hypoactive. Up to try and have BM but unsuccessful. She is voiding and drinking decent. Drank some of clear liquid diet. Ambulated in the halls and is back to bed resting.
[2018-02-01] MEDS: ONDANSETRON 4 MG/2 ML INJ IV (12:56)
[2018-02-01] MEDS: DOCUSATE 100 MG CAPSULE 200 MG PO (16:31)
--- NOTE | 2018-02-01 17:09 | PM.PN.1 ---
Subjective Date Patient Seen: 02/01/18 Time Patient Seen: 17:09 Interval history: Parvin is in good spirits. She had 1 episode of vomiting this afternoon. Staff reports that was of fairly large volume of just bilious emesis. She reports that she has not had much pain today and feels like her pain has really ?turned the corner?. She has not had only Toradol for discomfort. She did sit on the toilet and try to have a bowel movement earlier today but it did not work. She has been walking. She denies any nausea now but reports it was pretty better earlier. Exam Vital Signs (past 8 hours): - 02/01/18 12:12 02/01/18 16:11 Temperature 98.4 F 96.0 F L Pulse Rate 69 71 Respiratory Rate 16 16 Blood Pressure 142/96 H 143/85 H Pulse Oximetry 96 97 Oxygen Delivery Method Room Air Oxygen Flow Rate 0 Narrative Exam Narrative: Abdomen is soft, appropriately tender, active bowel sounds. Objective Labs Result Diagrams: 02/01/18 08:33 02/01/18 08:33 Labs: Laboratory Results - last 24 hr 02/01/18 02/01/18 08:33 08:33 WBC 9.1 RBC 3.98 L Hgb 12.0 Hct 35.3 L MCV 88.6 MCH 30.0 MCHC 33.9 RDW 13.5 Plt Count 231 Neut % (Auto) 72.8 Lymph % (Auto) 13.7 L [place] % (Auto) 10.6 Eos % (Auto) 2.4 Baso % (Auto) 0.5 Neut # (Auto) 6700 H Sodium 143 Potassium 4.0 Chloride 102 Carbon Dioxide 34 H BUN 6 L Creatinine 0.80 Estimated GFR > 60.0 BUN/Creatinine Ratio 7.5 Glucose 99 Calcium 10.2 Total Bilirubin 0.9 AST 34 ALT 31 Alkaline Phosphatase 51 Total Protein 6.3 Albumin 3.6 Globulin 2.7 Albumin/Globulin Ratio 1.3 Assessment & Plan Plan: Assessment/Plan Narrative: Postop day 2 after partial colectomy for recurrent volvulus. I have stopped oral medications and will give her a Dulcolax suppository to stimulate bowel function from below. It is only reasonable to expect some swelling within the bowel at the anastomotic site due to the trauma and swelling from the torsion at the time of operation. This should resolve with time. Quality VTE Deep Vein Thrombosis/Pulmonary Embolism Present on Admission: No
[2018-02-01] MEDS: BISACODYL 10 MG SUPP PR (18:40)
[2018-02-02] MEDS: DEXTROSE 5%-0.45% NS 1,000 ML 100 ML IV ×2 (03:23→13:38)
[2018-02-02 03:35] VITALS: BP 144/84; PULSE 66; RESP 16; TEMP 36.7; O2SAT 96
--- NOTE | 2018-02-02 03:36 | PC.NURSE ---
C/O pain, states there's a gas bubble, in my tummy that I can't expel. Encouraged to ambulate in the hallway. She ambulated in the hallway all the way to [facility] room & back to her room. Alternating ice & warm compress to her abdomen, will monitor.
[2018-02-02] MEDS: KETOROLAC 15 MG/ML VIAL IV ×3 (04:31→19:49)
--- NOTE | 2018-02-02 05:09 | PC.NURSE ---
Pt. reported my tummy feels a little better after having a small loose stool. Medicated with 15 mg. of IVP Toradol, settled to sleep now. Did not sleep well last night, will monitor.
[2018-02-02 08:10] VITALS: BP 138/76; PULSE 74; RESP 16; TEMP 36.5; O2SAT 97
[2018-02-02] MEDS: DOCUSATE 100 MG CAPSULE 200 MG PO ×2 (08:28→19:49)
[2018-02-02] MEDS: ENOXAPARIN 40 MG/0.4 ML SYRINGE SUBCUT (08:28)
--- NOTE | 2018-02-02 10:46 | PC.NURSE ---
Reportinggas pains in upper abd but finds relief after ambulating hallways. No flatus, hyperactive BTs. Pain tolerable at 4/10. No nausea with full liquid diet. Continue plan as ordered.
[2018-02-02 11:58] VITALS: BP 144/91; PULSE 72; RESP 18; TEMP 37.1; O2SAT 98
[2018-02-02] MEDS: LACTULOSE 20 GM/30 ML SOLUTION PO (13:29)
[2018-02-02 15:50] VITALS: BP 137/80; PULSE 86; RESP 18; TEMP 36.2; O2SAT 96
--- NOTE | 2018-02-02 17:05 | PC.NURSE ---
Pt up in bathroom independently. Denies passage of flatus and denies stool. Rates abdominal pain 5/10 and attributes this to, gas. Has been ambulatory in hallway per shift report and pt statement. Clear liquid diet. Denies nausea.
[2018-02-02] MEDS: SODIUM CHLORIDE 0.9% FLUSH 10 ML IV (19:49)
[2018-02-02 20:47] VITALS: BP 148/105; PULSE 84; RESP 16; TEMP 36.8; O2SAT 99
--- NOTE | 2018-02-02 20:54 | PM.PN.1 ---
Subjective Date Patient Seen: 02/02/18 Time Patient Seen: 20:54 Interval history: Parvin reports that she is feeling much better today. She says she has not passed any more flatus but did have a small liquid stool this morning. She feels her abdomen is making lots and lots and lots of noise and she has lots of cramping. She reports her incision is not terribly painful but the cramping is somewhat painful. Exam Vital Signs (past 8 hours): - 02/02/18 15:50 02/02/18 20:47 Temperature 97.2 F L 98.2 F Pulse Rate 86 84 Respiratory Rate 18 16 Blood Pressure 137/80 148/105 H Pulse Oximetry 96 99 Oxygen Delivery Method Room Air Oxygen Flow Rate 0 Narrative Exam Narrative: Lungs: Clear bilaterally Heart: Regular rate and rhythm without murmur rub or gallop Abdomen is soft, moderately tender to palpation around the incision. Hyperactive bowel sounds. Moderately distended. Bruising around the incision. Extremities: No edema Objective Labs Result Diagrams: 02/01/18 08:33 02/01/18 08:33 Assessment & Plan Plan: Assessment/Plan Narrative: Pleasant lady recovering after partial right colectomy for recurrent volvulus. At the time of operation, she was noted to have solid stool throughout the descending transverse and even ascending colon beyond the level of the cecum. I suspect her cramping may be multifactorial and include both some anastomotic swelling as well as some hard stool within the colon. I will start her on some low-dose lactulose and advance her diet as tolerated. She is walking and doing well. Taking minimal pain medication. She needs more time and continued supportive care Quality VTE Deep Vein Thrombosis/Pulmonary Embolism Present on Admission: No
--- NOTE | 2018-02-02 22:40 | PC.NURSE ---
Pt has had multiple small loose stools this evening shift. Toradol for c/o abdominal pain r/t gas. Warm blanket to abdomen. Ambulatory in hallway with FINGER BUFF SEWER standby. New iv to right forearm with fluids infusing without difficulty. States beginning to feel better this late evening.
[2018-02-02 22:51] VITALS: BP 141/86
[2018-02-03 00:13] VITALS: BP 137/86; PULSE 69; RESP 16; TEMP 36.7; O2SAT 97
[2018-02-03] MEDS: DEXTROSE 5%-0.45% NS 1,000 ML 100 ML IV ×3 (01:42→19:52)
--- NOTE | 2018-02-03 02:56 | PC.NURSE ---
Hospice Rn Note: Awake, alert, oriented X3. Abdominal incision open to air, with dermabond intact, no redness or drainage. Pt denies pain at this time. She has had several loose stools in the last few hours. Resting in bed.
[2018-02-03 03:34] VITALS: BP 146/86; PULSE 66; RESP 18; TEMP 36.6; O2SAT 98
[2018-02-03 06:48] LABS: Add Manual Diff / Slide Review NO; Basophils Percent Auto 0.6 % (0-2); Eosinophils Percent Auto 3.9 % (2-4); Hematocrit 30.9 % (36-46); Hemoglobin 10.5 g/dL (12.0-16.0); Lymphocytes Percent Auto 17.9 % (25-40); Mean Corpuscular Volume 88.2 fL (80-100); Monocytes Percent Auto 12.3 % (3-14); Neutrophils Absolute Auto 4600 /uL (3000-5900); Neutrophils Percent Auto 65.3 % (50-75); Platelet Count 229 X10^3/uL (150-400); Red Cell Distribution Width 13.4 % (11.6-14.8); White Blood Cell Count 7.1 X10^3/uL (4.5-11.0)
[2018-02-03 06:53] LABS: BUN Creatinine Ratio 7.1 (6-22); Blood Urea Nitrogen 5 mg/dL (7-17); Calcium 9.6 mg/dL (8.4-10.2); Carbon Dioxide 32 mmol/L (22-32); Chloride 107 mmol/L (98-107); Estimated Glomerular Filt Rate > 60.0 mL/min (>60); Glucose 103 mg/dL (80-110); HEMOLYSIS < 15 (0-50); Potassium 3.7 mmol/L (3.4-5.1); Sodium 143 mmol/L (137-145)
[2018-02-03 08:20] VITALS: BP 142/76; PULSE 65; RESP 14; TEMP 36.6; O2SAT 98
[2018-02-03] MEDS: ENOXAPARIN 40 MG/0.4 ML SYRINGE SUBCUT (08:22)
[2018-02-03] MEDS: BISACODYL 10 MG SUPP PR (08:23)
[2018-02-03] MEDS: DOCUSATE 100 MG CAPSULE 200 MG PO ×2 (08:23→19:51)
[2018-02-03] MEDS: KETOROLAC 15 MG/ML VIAL IV (08:23)
[2018-02-03 11:35] VITALS: BP 136/78; PULSE 67; RESP 17; TEMP 36.6; O2SAT 99
--- NOTE | 2018-02-03 12:01 | PC.NURSE ---
day shift pt states she has pain in abd. Took toradol this AM and states pain improved. up walking independently in room and in hallways. Had 2 BM this shift so far, soft, loose appearing. hourly rounding provided, call light within reach.
[2018-02-03 15:32] VITALS: BP 145/65; PULSE 69; RESP 18; TEMP 36.9; O2SAT 99
--- NOTE | 2018-02-03 16:57 | PC.NURSE ---
Pt ambulatory in hallway at beginning of shift. Brighter affect than last evening and states is feeling better. Rates incisional pain 2-3/10 and states gas pains have resolved with frequent stooling. Requests additional full liquids for dinner and states has appetite. These were provided. Up in chair for evening meal.
--- NOTE | 2018-02-03 18:45 | PM.PN.1 ---
Subjective Date Patient Seen: 02/03/18 Time Patient Seen: 18:45 Interval history: Denies significant pain. No fever or chills. She did pass some flatus and a small liquid stool earlier this afternoon. She is ambulating in the hallways aggressively with no issues. No chest pain or shortness of breath. Denies nausea or vomiting. She continues to feel slightly distended however. Denies dysuria. Tolerating full liquids but remains somewhat anorexic. Exam Vital Signs (past 8 hours): - 02/03/18 11:35 02/03/18 15:32 Temperature 97.9 F 98.4 F Pulse Rate 67 69 Respiratory Rate 17 18 Blood Pressure 136/78 145/65 H Pulse Oximetry 99 99 Oxygen Delivery Method Room Air Oxygen Flow Rate 0 Narrative Exam Narrative: Well-nourished well-developed thin female in no acute distress. Alert oriented x3. She is sitting comfortably in bedside chair. Remains afebrile hemodynamically stable with no tachycardia Sclera nonicteric Regular rate and rhythm Abdomen soft but mildly distended. She has ecchymosis around the incision but no hematoma. No wound drainage. No erythema. She is appropriately tender to palpation with no guarding or rebound. Extremities show no clubbing, cyanosis, or edema Objective Labs Result Diagrams: 02/03/18 06:32 02/03/18 06:32 Labs: Laboratory Results - last 24 hr 02/03/18 02/03/18 06:32 06:32 WBC 7.1 RBC 3.50 L Hgb 10.5 L Hct 30.9 L MCV 88.2 MCH 30.0 MCHC 34.0 RDW 13.4 Plt Count 229 Neut % (Auto) 65.3 Lymph % (Auto) 17.9 L [place] % (Auto) 12.3 Eos % (Auto) 3.9 Baso % (Auto) 0.6 Neut # (Auto) 4600 Sodium 143 Potassium 3.7 Chloride 107 Carbon Dioxide 32 BUN 5 L Creatinine 0.70 Estimated GFR > 60.0 BUN/Creatinine Ratio 7.1 Glucose 103 Calcium 9.6 Assessment & Plan Plan: Assessment/Plan Narrative: 62-year-old female approximately 5 days status post right colectomy with ileocolonic anastomosis for cecal volvulus who is doing quite well. She is having gradual return of bowel function. If she continues to have spontaneous bowel function we will advance her to a regular diet tomorrow. Add Colace and Senokot. Saline lock the IV at that time as well. She may shower if she wishes. Continue to ambulate ad eugenia. I explained that once she is able to tolerate a regular diet with more consistent bowel function then she would be discharged home. I anticipate discharge from the hospital within the next 24-48 hours. All questions were answered to her satisfaction, and she voiced understanding. Orders were written. Quality VTE Deep Vein Thrombosis/Pulmonary Embolism Present on Admission: No
[2018-02-03 19:36] VITALS: BP 134/78; PULSE 66; RESP 18; TEMP 36.7; O2SAT 96
[2018-02-03] MEDS: SENNOSIDES 8.6 MG TABLET PO (19:51)
--- NOTE | 2018-02-03 23:16 | PC.NURSE ---
Has not requested pain medications all evening although explained Dr. Wolfe's pain management orders to patient following rounds this evening shift. Taking clear/full liquids well. Has ordered regular diet choices for a.m. as per Dr. Wolfe's orders. Ambulatory and independent in room and in hallway.
[2018-02-04 00:16] VITALS: BP 145/84; PULSE 73; RESP 18; TEMP 36.9; O2SAT 97
[2018-02-04] MEDS: OXYCODONE IR 5 MG TABLET PO ×2 (02:39→20:13)
[2018-02-04] MEDS: DEXTROSE 5%-0.45% NS 1,000 ML 100 ML IV (05:42)
[2018-02-04 06:00] VITALS: BP 129/73; PULSE 71; RESP 16; TEMP 36.2; O2SAT 98
[2018-02-04 08:50] VITALS: BP 132/88; PULSE 88; RESP 16; TEMP 36.9; O2SAT 98
[2018-02-04] MEDS: ENOXAPARIN 40 MG/0.4 ML SYRINGE SUBCUT (09:19)
[2018-02-04] MEDS: DOCUSATE 100 MG CAPSULE 200 MG PO ×2 (09:19→20:13)
--- NOTE | 2018-02-04 12:23 | PM.PN.1 ---
Subjective Date Patient Seen: 02/04/18 Time Patient Seen: 11:14 Interval history: No new complaints. Pain is minimal and otherwise well controlled. She is passing flatus but no bowel movement as yet. Still feels subjectively distended. No nausea or vomiting. Tolerating a regular diet this morning. She is eating some prunes as she feels this will help with her bowel function. Ambulating without difficulty. Was able to shower yesterday with no issues. No dysuria or hematuria. Exam Vital Signs (past 8 hours): - 02/04/18 06:00 02/04/18 08:50 Temperature 97.2 F L 98.4 F Pulse Rate 71 88 Respiratory Rate 16 16 Blood Pressure 129/73 132/88 Pulse Oximetry 98 98 Oxygen Delivery Method Room Air Oxygen Flow Rate 0 Narrative Exam Narrative: Well-nourished well-developed female in good spirits sitting comfortably in bedside chair. No acute distress. Alert oriented x3 Regular rate and rhythm Abdomen remains mildly distended and tympanitic but otherwise soft. No guarding or rebound. Appropriately tender. Ecchymoses of the anterior abdominal wall remain unchanged. Incision is otherwise clean, dry, and intact without erythema or drainage. Extremities show no clubbing, cyanosis, or edema Objective Labs Result Diagrams: 02/03/18 06:32 02/03/18 06:32 Labs: No new laboratory radiographic studies for review Assessment & Plan Plan: Assessment/Plan Narrative: 62-year-old female with slowly resolving postoperative ileus after right colectomy and ileocolonic anastomosis for cecal volvulus who is doing well overall. Her ileus is not unanticipated given the nature of her problem as well as the surgical intervention required. Because she is doing well with oral intake we will saline lock her IV today. She may continue to ambulate and shower ad eugenia. Continue diet as tolerated. Discontinue scheduled rectal suppository. Continue Colace and Senokot. Add dose of milk of magnesia today. Once she has adequate return of bowel function she would be ready for discharge to home. Hopefully this will occur within the next 24 hr or so. I discussed all the above with her in detail. Questions were answered to her satisfaction, and she voiced understanding. Orders were written. Quality VTE Deep Vein Thrombosis/Pulmonary Embolism Present on Admission: No
[2018-02-04 12:30] VITALS: BP 152/94; PULSE 82; RESP 16; O2SAT 99
[2018-02-04] MEDS: MAGNESIUM HYDROXIDE 30 ML UDC PO (12:59)
--- NOTE | 2018-02-04 13:03 | PC.NURSE ---
day shift pt states pain is present in AM but tolerable. declines pain meds. up walking in hallways independently. denies flatus and no BM yet. no suppository given to pt after discussion with MD. tolerating general diet without issue. no nausea or increased abd pain. hourly rounding provided, call light within reach. and son came to visit today, pt had a pill box that was in med drawer. sent this home with her per pt request.
[2018-02-04 16:15] VITALS: BP 139/84; PULSE 76; RESP 18; TEMP 37.6; O2SAT 98
[2018-02-04 20:10] VITALS: BP 148/92; PULSE 69; RESP 17; TEMP 37; O2SAT 99
[2018-02-04] MEDS: SENNOSIDES 8.6 MG TABLET PO (20:13)
[2018-02-05] MEDS: OXYCODONE IR 5 MG TABLET PO ×2 (05:26→12:09)
[2018-02-05 06:10] VITALS: BP 147/81; PULSE 69; RESP 18; TEMP 36.4; O2SAT 100
[2018-02-05 08:11] VITALS: BP 135/71; PULSE 84; RESP 16; TEMP 36.3; O2SAT 96
[2018-02-05] MEDS: DOCUSATE 100 MG CAPSULE 200 MG PO (09:15)
[2018-02-05] MEDS: ENOXAPARIN 40 MG/0.4 ML SYRINGE SUBCUT (09:15)
[2018-02-05 11:42] VITALS: BP 122/73; PULSE 69; RESP 18; TEMP 36.8; O2SAT 98
--- NOTE | 2018-02-05 13:21 | PM.DS.1 ---
History of Present Illness Date Patient Seen: 02/05/18 Time Patient Seen: 13:21 Chief complaint: lower right abdominal pain Narrative: 62-year-old female who presented with recurrent right-sided abdominal pain. Examination and evaluation were consistent with recurrent cecal volvulus. Patient had multiple previous admissions for such that were managed non operatively. Given the significant and recurrent nature of her issue she was recommended to undergo urgent surgery during this admission. Discharge Providers Date of admission: 01/29/18 12:17 Consults: 01/29/18 16:59 Consult to Discharge Planning Routine Comment: Discharge provider: Juan M Wolfe MD Summary Discharge Diagnosis: 1. Cecal volvulus, recurrent 2. Exploratory laparotomy with right hemicolectomy and ileocolonic anastomosis January 29, 2018 3. Hypertension Hospital Course: Patient was admitted and taken to the operating room as above. She tolerated the procedure well. Postoperatively she was admitted to the regular surgical floor where she remained afebrile and hemodynamically stable. She had a ventral return of bowel function and spontaneous normal bladder function without issues. She did require some laxative therapy to assist bowel function. At the time of discharge she is passing both flatus and liquid stool. Her pain has been relatively minimum and otherwise well controlled with oral analgesics at the time of discharge. She is tolerating a regular diet. No nausea or vomiting. She is ambulating without difficulty unassisted. Because of her overall stable condition with no evidence of complications or other issue she is discharged home on postoperative day 7. She has been instructed on wound care. She will follow up in surgery Clinic in 1 week. However, she has been instructed to call or return sooner for fever, chills, nausea, vomiting, inability to tolerate a diet, progressive pain, or lack of bowel function. All questions were answered to her satisfaction, and she voiced understanding. Status at Discharge Cognitive/behavioral status at discharge: Alert oriented x3 Functional status at discharge: independent ambulation Overall status at discharge: patient is progressing back to baseline Time Spent with Patient Less than 30 minutes Exam Vital Signs (past 8 hours): - 02/05/18 06:10 02/05/18 08:11 02/05/18 11:42 Temperature 97.6 F 97.3 F L 98.3 F Pulse Rate 69 84 69 Respiratory Rate 18 16 18 Blood Pressure 147/81 H 135/71 122/73 Pulse Oximetry 100 96 98 Oxygen Delivery Method Room Air Oxygen Flow Rate 0 Narrative Exam Narrative: Well-nourished well-developed female sitting comfortably in bedside chair in no acute distress. Alert oriented x3. Her is at the bedside during my visit today. Sclera nonicteric Regular rate and rhythm Abdomen is minimally distended but otherwise soft. She is appropriately tender without guarding or rebound. Incision is clean, dry, and intact without erythema. She has diffuse ecchymosis throughout the midportion of the abdomen but no hematoma or seroma. No wound drainage. Extremities show no clubbing, cyanosis, or edema Objective Labs Result Diagrams: 02/03/18 06:32 02/03/18 06:32 Discharge Plan Discharge Plan Patient Disposition: Home Discharge Med Rec/Prescriptions Prescriptions: New oxycodone 5 mg tablet 5 mg PO Q3H PRN (Reason: pain) Qty: 30 RF: 0 docusate sodium [Colace] 100 mg capsule 100 mg PO BID Qty: 14 RF: 1 sennosides [Senokot] 8.6 mg tablet 8.6 mg PO BEDTIME Qty: 10 RF: 1 Continue lisinopril 10 MG tablet 10 mg OR Q DAY Qty: 0 RF: 0 cholecalciferol (vitamin D3) [Vitamin D3] 4,000 UNIT capsule 4,000 mg OR Q DAY Qty: 0 RF: 0 Follow up/Referrals: Aida Gerardo MD [Physician] - 02/13/18 12:00 am (Call office on February 06 2018 for appointment time) Provider Discharge Instructions Diet: Diet as Tolerated Activity: No lifting more than 20 lb for 3 more weeks No driving while taking opioid pain medications May shower May walk as much as desired May climb stairs May ride in vehicle Cold/Heat Therapy: May apply ice pack and/or heat pad to incision for comfort as needed Skin/Wound/Dressing Care Report to your healthcare provider any signs of infection, such as:: chills, fever, increased pain and unusual drainage Dressing: No dressing necessary Do not soak incision in bathtub or pool for 2 weeks Discharge Data Attending Provider: Aida Gerardo Admit Date/Time: 01/29/18 12:17 Quality VTE Deep Vein Thrombosis/Pulmonary Embolism Present on Admission: No
--- NOTE | 2018-02-05 14:21 | CM.DPC ---
Addendum entered by Kelley Collazo LPN 02/05/18 15:16: Pt left was comfortable with the d/c plan for today. Was aware of her appeal rights/RANDI. Left before signing RANDI # 2. Original Note: DCP: continued: Case again received 02/03, EMR reviewed. Have observed pt mobilizing about the facility over the last couple of days. Plan remained home once GI function returned. Dr. Wolfe saw pt this afternoon and ok'd her for home. She has left for [place] with her as per plan. Clinic followup.
== END 2018-02-05 14:03 | disposition home or self-care (01) | DRG 331 ==
LOC: ED 12:16 → AC 12:18
PROVIDERS: Admitting Provider Surgery; Emergency Provider Emergency Medicine; Visit Provider Surgery
PROC: 0DTE0ZZ Resection of Large Intestine, Open Approach (ICD-10-PCS; principal; 2018-01-29 14:10)
DX: K56.2 Volvulus (principal); K56.7 Ileus, unspecified; I10 Essential (primary) hypertension
CPT/HCPCS: 36415; 36591; 44205; 74177; 80048; 80053; 81003; 83690; 85025; 85610; 85730; 88307; 96361; 96374; 96375; 99223; 99283; 99285; J0330; J1100; J1170; J1650; J1885; J2270; J2405; J2704; J3010; Q9967